=== PATIENT | female | born 1955 | race Caucasian/White ===

== ENCOUNTER 2018-12-01 18:22 | Emergency (ER) | payer OTHER ==
--- NOTE | 2018-12-01 18:26 | PDOC ---
Rapid Medical Evaluation Time Seen by Provider: 12/01/18 18:24 Medical Evaluation: 12/01/18 18:24 I have performed a brief in-person evaluation of this patient. The patient presents with a chief complaint of: headache and neck pain. BP elevated at home. Pertinent physical exam findings: Neck without meningismus. No focal deficits. I have ordered the following: tylenol, labs, urine, EKG The patient will proceed to the ED for further evaluation. Discharge Disposition - Diagnosis Headache - Referrals - Patient Instructions - Post Discharge Activity
[2018-12-01] MEDS ORDERED: ACETAMINOPHEN 325 MG TABLET (FP) PO ONE (18:27)
[2018-12-01 18:28] VITALS: BP 165/86; PULSE 77; TEMP 98.7; BMI 39.4
[2018-12-01] MEDS ORDERED: ACETAMINOPHEN 325 MG TABLET (FP) ONE (18:43)
[2018-12-01 19:13] LABS: BASO % 0.3 % (0-2.0); EOS % 0.9 % (0-4.5); HEMATOCRIT 40.5 % (32.4-45.2); HEMOGLOBIN 13.5 GM/dL (10.7-15.3); LYMPH % 30.5 % (8-40); MCH 28.9 pg (25.7-33.7); MCHC 33.2 g/dl (32.0-36.0); MEAN PLT VOLUME 9.6 fl (7.5-11.1); MONO % 19.3 % (3.8-10.2); PLATELET COUNT 234 K/MM3 (134-434); RBC 4.65 M/mm3 (3.60-5.2); RDW 14.7 % (11.6-15.6); WHITE BLOOD COUNT 5.3 K/mm3 (4.0-10.0)
[2018-12-01 19:36] LABS: EPI CELLS 0.4 /HPF (0-5/HPF); HYALINE CASTS 0 /lpf (0-8); URINE APPEARANCE CLEAR; URINE BACTERIA 35.2 /hpf (NEGATIVE); URINE BILIRUBIN NEGATIVE (NEGATIVE); URINE COLOR YELLOW; URINE GLUCOSE (UA) NEGATIVE (NEGATIVE); URINE KETONE NEGATIVE (NEGATIVE); URINE LEUK ESTERASE NEGATIVE (NEGATIVE); URINE NITRITE NEGATIVE (NEGATIVE); URINE PROTEIN NEGATIVE (NEGATIVE); URINE RBC 2 /hpf (0-4); URINE UROBILINOGEN 0.2 mg/dL (0.2-1.0); URINE WBC 0 /hpf (0-5)
[2018-12-01 19:46] LABS: ALBUMIN 3.7 g/dl (3.4-5.0); BILIRUBIN,TOTAL 0.6 mg/dL (0.2-1); BLOOD UREA NITROGEN 17.8 mg/dL (7-18); CREATININE 1.1 mg/dL (0.55-1.3); TOT PROT 7.9 g/dl (6.4-8.2)
--- NOTE | 2018-12-01 20:20 | PDOC ---
History of Present Illness - General Chief Complaint: Blood Pressure Problem Stated Complaint: HYPERTENSION Time Seen by Provider: 12/01/18 18:24 History Source: Patient, Family Exam Limitations: Language Barrier Past History - Past Medical History Allergies/Adverse Reactions: Allergies Allergy/AdvReac Type Severity Reaction Status Date / Time No Known Allergies Allergy Verified 12/01/18 18:28 CVA: Yes COPD: No Diabetes: Yes (pre) HTN: Yes - Suicide/Smoking/Psychosocial Hx Smoking History: Never smoked Information on smoking cessation initiated: No Hx Alcohol Use: No Drug/Substance Use Hx: No *Physical Exam - Vital Signs Last Vital Signs Temp Pulse Resp BP Pulse Ox 98.7 F 77 18 165/86 98 12/01/18 18:24 12/01/18 18:24 12/01/18 18:24 12/01/18 18:24 12/01/18 18:24 - Physical Exam General Appearance: No: Apparent Distress HEENT: positive: Normal ENT Inspection Neck: positive: Supple Respiratory/Chest: positive: Lungs Clear, Normal Breath Sounds. negative: Respiratory Distress Cardiovascular: positive: Regular Rhythm, Regular Rate, S1, S2. negative: Murmur Gastrointestinal/Abdominal: positive: Normal Bowel Sounds, Soft. negative: Tender, Distended, Guarding, Rebound Musculoskeletal: negative: CVA Tenderness Integumentary: positive: Normal Color Neurologic: positive: synthetic chemist II-XII NML intact, Fully Oriented, Alert, Normal Mood/ Affect ED Treatment Course - LABORATORY CBC & Chemistry Diagram: 12/01/18 19:00 12/01/18 19:00 - ADDITIONAL ORDERS Additional order review: Laboratory Results 12/01/18 12/01/18 19:23 19:00 Sodium 139 Potassium 4.0 Chloride 106 Carbon Dioxide 28 Anion Gap 6 L BUN 17.8 Creatinine 1.1 Est GFR (CKD-EPI)AfAm 61.44 Est GFR (CKD-EPI)NonAf 53.01 Random Glucose 150 H Calcium 9.0 Total Bilirubin 0.6 AST 51 H ALT 54 Alkaline Phosphatase 93 Total Protein 7.9 Albumin 3.7 Urine Color Yellow Urine Appearance Clear Urine pH 6.0 Ur Specific [place] 1.011 Urine Protein Negative Urine Glucose (UA) Negative Urine Ketones Negative Urine Blood Trace Urine Nitrite Negative Urine Bilirubin Negative Urine Urobilinogen 0.2 Ur Leukocyte Esterase Negative Urine WBC (Auto) 0 Urine RBC (Auto) 2 Urine Casts (Auto) 0 U Epithel Cells (Auto) 0.4 Urine Bacteria (Auto) 35.2 12/01/18 19:00 RBC 4.65 MCV 87.0 MCHC 33.2 RDW 14.7 MPV 9.6 Neutrophils % 49.0 Lymphocytes % 30.5 Monocytes % 19.3 H Eosinophils % 0.9 Basophils % 0.3 - Medications Given in the ED: ED Medications Discontinued Medications Generic Name Dose Route Start Last Admin Trade Name Lyn PRN Reason Stop Dose Admin Acetaminophen 975 mg 12/01/18 18:27 12/01/18 18:56 Tylenol - PO 12/01/18 18:28 975 mg ONCE ONE Administration Medical Decision Making - Medical Decision Making 63 y/o F hx of HTN, HLD, DM, CVA (2 years ago, with L sided weakness) presents with chills, subjective fever from yesterday along with very mild ROMERO. Patient had 1 episode of NBNB emesis yesterday but none today. Though triage note mentions concern about elevated BP, patient denies it here. Denies cough, throat pain, sob, cp, abd pain, diarrhea, urinary complaints Labs unremarkable Patient appears well Likely viral syndrome Stable for dc 12/01/18 20:13 *DC/Admit/Observation/Transfer Diagnosis at time of Disposition: Viral syndrome - Discharge Dispostion Disposition: HOME Condition at time of disposition: Stable Decision to Admit order: No - Referrals - Patient Instructions Printed Discharge Instructions: DI for Viral Syndrome Additional Instructions: Thank you for choosing [facility]. It was a pleasure taking care of you. Your labs and urine were normal This could possibly be start of viral syndrome Please follow-up with your doctor in 2 days Return to the Emergency Department if your symptoms worsen or persist or have other concerning symptoms. Taylor por elegir el [facility]. Fue un placer cuidar de ti. Tus laboratorios y orina silvia normales. [place] podra ser el comienzo de un sndrome viral. Por favor dalton un seguimiento con rae mdico en 2 horton. Regrese al Departamento de Emergencias si karey sntomas empeoran o persisten o si tiene otros sntomas relacionados. - Post Discharge Activity
--- NOTE | 2018-12-01 20:36 | PDOC ---
*Physical Exam - Vital Signs Last Vital Signs Temp Pulse Resp BP Pulse Ox 98.7 F 77 18 165/86 98 12/01/18 18:24 12/01/18 18:24 12/01/18 18:24 12/01/18 18:24 12/01/18 18:24 ED Treatment Course - LABORATORY CBC & Chemistry Diagram: 12/01/18 19:00 12/01/18 19:00 - ADDITIONAL ORDERS Additional order review: Laboratory Results 12/01/18 12/01/18 19:23 19:00 Sodium 139 Potassium 4.0 Chloride 106 Carbon Dioxide 28 Anion Gap 6 L BUN 17.8 Creatinine 1.1 Est GFR (CKD-EPI)AfAm 61.44 Est GFR (CKD-EPI)NonAf 53.01 Random Glucose 150 H Calcium 9.0 Total Bilirubin 0.6 AST 51 H ALT 54 Alkaline Phosphatase 93 Total Protein 7.9 Albumin 3.7 Urine Color Yellow Urine Appearance Clear Urine pH 6.0 Ur Specific [place] 1.011 Urine Protein Negative Urine Glucose (UA) Negative Urine Ketones Negative Urine Blood Trace Urine Nitrite Negative Urine Bilirubin Negative Urine Urobilinogen 0.2 Ur Leukocyte Esterase Negative Urine WBC (Auto) 0 Urine RBC (Auto) 2 Urine Casts (Auto) 0 U Epithel Cells (Auto) 0.4 Urine Bacteria (Auto) 35.2 12/01/18 19:00 RBC 4.65 MCV 87.0 MCHC 33.2 RDW 14.7 MPV 9.6 Neutrophils % 49.0 Lymphocytes % 30.5 Monocytes % 19.3 H Eosinophils % 0.9 Basophils % 0.3 - Medications Given in the ED: ED Medications Discontinued Medications Generic Name Dose Route Start Last Admin Trade Name Lyn PRN Reason Stop Dose Admin Acetaminophen 975 mg 12/01/18 18:27 12/01/18 18:56 Tylenol - PO 12/01/18 18:28 975 mg ONCE ONE Administration Medical Decision Making - Medical Decision Making 12/01/18 20:36 Case reviewed, agree with assessment and plan *DC/Admit/Observation/Transfer Diagnosis at time of Disposition: Viral syndrome - Discharge Dispostion Disposition: HOME Condition at time of disposition: Stable - Referrals - Patient Instructions Printed Discharge Instructions: DI for Viral Syndrome Additional Instructions: Thank you for choosing [facility]. It was a pleasure taking care of you. Your labs and urine were normal This could possibly be start of viral syndrome Please follow-up with your doctor in 2 days Return to the Emergency Department if your symptoms worsen or persist or have other concerning symptoms. Taylor por elegir el [facility]. Fue un placer cuidar de ti. Tus laboratorios y orina silvia normales. [place] podra ser el comienzo de un sndrome viral. Por favor dalton un seguimiento con rae mdico en 2 horton. Regrese al Departamento de Emergencias si karey sntomas empeoran o persisten o si tiene otros sntomas relacionados. - Post Discharge Activity
== END 2018-12-01 21:09 | disposition home or self-care (01) ==
LOC: JER 18:22
DX: B34.9 Viral infection, unspecified (principal); I10 Essential (primary) hypertension; E78.5 Hyperlipidemia, unspecified; E11.9 Type 2 diabetes mellitus without complications; I69.854 Hemiplegia and hemiparesis following other cerebrovascular disease affecting left non-dominant side
CPT/HCPCS: 36415; 80053; 81003; 85025; 87086; 99281-25

== ENCOUNTER 2019-07-17 18:44 | Emergency (ER) | payer OTHER ==
[2019-07-17 18:51] VITALS: BP 164/80; PULSE 84; TEMP 80; BMI 34.8
--- NOTE | 2019-07-17 21:19 | PDOC ---
History of Present Illness - General Chief Complaint: Pain Stated Complaint: PAIN Time Seen by Provider: 07/17/19 20:50 - History of Present Illness Initial Comments: 07/17/19 21:17 63-year-old female with multiple comorbidities including hypertension diabetes prior strokes presents for evaluation of lower back pain with bilateral posterior lateral leg radiculopathy x1 month. No loss of bowel bladder function or saddle paresthesias no systemic symptoms. She is under the care of pain management she has had undergone 1 epidural injection without relief Past History - Past Medical History Allergies/Adverse Reactions: Allergies Allergy/AdvReac Type Severity Reaction Status Date / Time No Known Allergies Allergy Verified 07/17/19 18:52 CVA: Yes COPD: No Diabetes: Yes (pre) HTN: Yes - Psycho Social/Smoking Cessation Hx Smoking History: Never smoked Hx Alcohol Use: No Drug/Substance Use Hx: No Review of Systems - Review of Systems Constitutional: No: Fever : No: Incontinence Musculoskeletal: Yes: Back Pain *Physical Exam - Vital Signs Last Vital Signs Temp Pulse Resp BP Pulse Ox 80 F L 84 18 164/80 100 07/17/19 18:47 07/17/19 18:47 07/17/19 18:47 07/17/19 18:47 07/17/19 18:47 - Physical Exam 07/17/19 21:18 Lumbar spine skin color temperature normal range of motion is slightly decreased. No midline tenderness. Moderate bilateral paralumbar musculature spasm and tenderness 5 out of 5 strength bilateral lower extremities without gross sensorimotor deficits thighs and calves are soft and nontender neurovascular intact Medical Decision Making - Medical Decision Making 07/17/19 21:18 We will treat with a one-time dose of Percocet in the emergency room follow-up with pain management she has a scheduled appointment this week. Discharge - Discharge Information Problems reviewed: Yes Clinical Impression/Diagnosis: Lumbar radiculopathy Condition: Stable Disposition: HOME - Admission No - Follow up/Referral Referrals: Christoph Godienz MD [Primary Care Provider] - - Patient Discharge Instructions Additional Instructions: Return to the emergency room for worsening symptoms. Please, without fail follow-up with your pain management doctor within the next 1 to 2 days for further evaluation and treatment options. Continue your regular medication as directed. - Post Discharge Activity
== END 2019-07-17 21:23 | disposition home or self-care (01) ==
LOC: JERFT 18:44
DX: M54.16 Radiculopathy, lumbar region (principal); I10 Essential (primary) hypertension; E11.9 Type 2 diabetes mellitus without complications; Z86.73 Personal history of transient ischemic attack (TIA), and cerebral infarction without residual deficits
CPT/HCPCS: 99283-25

== ENCOUNTER 2021-03-04 13:44 | Inpatient (IN) | payer OTHER ==
[2021-03-04] MEDS ORDERED: PANTOPRAZOLE SODIUM 40 MG VIAL IVPUSH ONE (15:04)
[2021-03-04] MEDS ORDERED: FAMOTIDINE 20 MG/50 ML IVPB 20 MG/50 ML MG IVPB ONE ×2 (15:04→15:25)
[2021-03-04] MEDS ORDERED: MAG HYDROX/AL HYDROX/SIMETH -MYLANTA- ORAL SUSPENSION PO ONE (15:04)
[2021-03-04] MEDS ORDERED: ACETAMINOPHEN 1000 MG/100 ML VIAL (NON FORMULARY) IVPB ONE (15:04)
[2021-03-04] MEDS ORDERED: ACETAMINOPHEN INJECTION 100 ML IVPB ONE (15:24)
[2021-03-04] MEDS ORDERED: MAG HYDROX/AL HYDROX/SIMETH 30 ML UNIT-DOSE CUP ONE (15:24)
[2021-03-04] MEDS ORDERED: PANTOPRAZOLE SODIUM 40 MG VIAL ONE (15:25)
[2021-03-04] MEDS ORDERED: ONDANSETRON 4 MG/2 ML VIAL IVPUSH ONE (15:50)
[2021-03-04 15:52] LABS: BASO % 0.3 % (0-2.0); EOS % 0.4 % (0-4.5); HEMATOCRIT 32.9 % (32.4-45.2); HEMOGLOBIN 10.8 GM/dL (10.7-15.3); LYMPH % 8.8 % (8-40); MCH 26.8 pg (25.7-33.7); MCHC 32.9 g/dl (32.0-36.0); MEAN CELL VOLUME 81.3 fl (80-96); MEAN PLT VOLUME 8.5 fl (7.5-11.1); MONO % 9.3 % (3.8-10.2); NEUT % 81.2 % (42.8-82.8); PLATELET COUNT 274 10^3/uL (134-434); RBC 4.05 M/mm3 (3.60-5.2); RDW 15.8 % (11.6-15.6); WHITE BLOOD COUNT 6.6 K/mm3 (4.0-10.0)
[2021-03-04] MEDS ORDERED: ONDANSETRON 4 MG/2 ML VIAL ONE (15:52)
[2021-03-04 16:07] LABS: CHLORIDE 104 mmol/L (98-107); SODIUM 139 mmol/L (136-145)
[2021-03-04 16:09] LABS: ALBUMIN 3.4 g/dl (3.4-5.0); ANION GAP 10 MMOL/L (8-16); CALCIUM 9.3 mg/dL (8.5-10.1); CO2 26 mmol/L (21-32)
[2021-03-04 16:10] LABS: BLOOD UREA NITROGEN 19.2 mg/dL (7-18); LIPASE 111 U/L (73-393)
[2021-03-04 16:12] LABS: GLUCOSE,RANDOM 110 mg/dL (74-106)
[2021-03-04 16:13] LABS: CREATININE 1.3 mg/dL (0.55-1.3); SGOT/AST 23 U/L (15-37); SGPT/ALT 26 U/L (13-61)
[2021-03-04 16:14] LABS: BILIRUBIN,TOTAL 0.7 mg/dL (0.2-1); TOT PROT 7.9 g/dl (6.4-8.2)
[2021-03-04 16:15] LABS: ALK PHOS 115 U/L (45-117); LACTIC ACID 2.1 mmol/L (0.4-2.0)
[2021-03-04] MEDS ORDERED: SODIUM CHLORIDE 0.9% 500 ML INFUS.BAG IV ONE (16:50)
[2021-03-04 18:04] LABS: URINE APPEARANCE CLEAR; URINE BILIRUBIN NEGATIVE (NEGATIVE); URINE COLOR YELLOW; URINE GLUCOSE (UA) NEGATIVE (NEGATIVE); URINE KETONE NEGATIVE (NEGATIVE); URINE LEUK ESTERASE NEGATIVE (NEGATIVE); URINE NITRITE NEGATIVE (NEGATIVE); URINE PROTEIN NEGATIVE (NEGATIVE); URINE UROBILINOGEN 0.2 mg/dL (0.2-1.0)
[2021-03-05] MEDS ORDERED: ONDANSETRON 4 MG/2 ML VIAL IVPUSH PRN (00:54)
[2021-03-05] MEDS ORDERED: morphine SULFATE 4 MG/ML VIAL IVPUSH PRN (00:56)
[2021-03-05] MEDS: SODIUM CHLORIDE 1,000 ML IV SCH (02:18)
[2021-03-05 05:27] VITALS: BMI 34.7
[2021-03-05] MEDS: morphine SULFATE 4 MG/ML VIAL IVPUSH PRN ×2 (06:16→17:44)
[2021-03-05] MEDS: INSULIN SLIDING SCALE (NOVOLOG) 1 VIAL SQ SCH ×4 (06:20→21:21)
[2021-03-05] MEDS ORDERED: INSULIN SLIDING SCALE (NOVOLOG) 1 VIAL SQ SCH (07:00)
[2021-03-05] MEDS ORDERED: INSULIN (NOVOLOG) ASPART 100 UNITS/ML 10ML VIAL ONE (07:58)
[2021-03-05 08:04] LABS: BASO % 0.3 % (0-2.0); EOS % 0.6 % (0-4.5); HEMATOCRIT 31.5 % (32.4-45.2); HEMOGLOBIN 10.3 GM/dL (10.7-15.3); LYMPH % 11.2 % (8-40); MCH 26.8 pg (25.7-33.7); MCHC 32.8 g/dl (32.0-36.0); MEAN CELL VOLUME 81.9 fl (80-96); MEAN PLT VOLUME 8.3 fl (7.5-11.1); MONO % 10.8 % (3.8-10.2); NEUT % 77.1 % (42.8-82.8); PLATELET COUNT 237 10^3/uL (134-434); RBC 3.85 M/mm3 (3.60-5.2); RDW 15.3 % (11.6-15.6); WHITE BLOOD COUNT 5.8 K/mm3 (4.0-10.0)
[2021-03-05 08:30] LABS: ALBUMIN 3.2 g/dl (3.4-5.0); CALCIUM 9.2 mg/dL (8.5-10.1)
[2021-03-05 08:31] LABS: BLOOD UREA NITROGEN 14.5 mg/dL (7-18); MAGNESIUM 1.6 mg/dL (1.8-2.4)
[2021-03-05 08:34] LABS: CREATININE 0.9 mg/dL (0.55-1.3); PHOSPHOROUS 3.6 mg/dL (2.5-4.9)
[2021-03-05 08:35] LABS: TOT PROT 7.4 g/dl (6.4-8.2)
[2021-03-05] MEDS: amLODIPine BESYLATE 10 MG TABLET (FP) PO SCH (09:43)
[2021-03-05] MEDS ORDERED: ENOXAPARIN NA (PORCINE) 40 MG/0.4 ML DISP.SYRIN SQ SCH (10:00)
[2021-03-05] MEDS ORDERED: MAG HYDROX/AL HYDROX/SIMETH 30 ML UNIT-DOSE CUP PO PRN (12:56)
[2021-03-05] MEDS: PANTOPRAZOLE 40 MG TABLET PO SCH ×2 (13:26→21:19)
[2021-03-05] MEDS ORDERED: PT OWN MED DRAWER 7, Y5N ONE (16:10)
[2021-03-05] MEDS ORDERED: LOSARTAN POTASSIUM 25 MG TABLET PO SCH (22:00)
[2021-03-06] MEDS: SODIUM CHLORIDE 1,000 ML IV SCH (03:41)
[2021-03-06] MEDS: INSULIN SLIDING SCALE (NOVOLOG) 1 VIAL SQ SCH ×2 (06:01→11:13)
[2021-03-06] MEDS ORDERED: PT OWN MED DRAWER 7, Y5N ONE (09:55)
[2021-03-06] MEDS: amLODIPine BESYLATE 10 MG TABLET (FP) PO SCH (09:58)
[2021-03-06] MEDS: PANTOPRAZOLE 40 MG TABLET PO SCH (09:58)
[2021-03-06 11:39] VITALS: BP 137/64; PULSE 80; TEMP 98.5
== END 2021-03-06 14:03 | disposition home or self-care (01) | DRG 251 ==
LOC: JER 13:44 → JERBED 20:23 → J8W 03-05 06:01
PROVIDERS: ADMIT Internal Medicine; ATTEND Family Medicine
DX: R10.9 Unspecified abdominal pain (principal); K21.9 Gastro-esophageal reflux disease without esophagitis; E11.9 Type 2 diabetes mellitus without complications; I10 Essential (primary) hypertension; I69.354 Hemiplegia and hemiparesis following cerebral infarction affecting left non-dominant side; E66.9 Obesity, unspecified; Z68.34 Body mass index [BMI] 34.0-34.9, adult; R18.8 Other ascites; Z85.09 Personal history of malignant neoplasm of other digestive organs; K57.90 Diverticulosis of intestine, part unspecified, without perforation or abscess without bleeding
CPT/HCPCS: 36415; 71045-TC-FY; 74177-TC; 80053; 81003; 82550; 82962; 83036; 83605; 83690; 83735; 84100; 84484; 85025; 86140; 87086; 93005; 93010; 99285-25; C9803; J0131; Q9967; U0003; U0005